=== PATIENT | male | born 1990 | race Two or more races ===

== ENCOUNTER 2025-03-22 13:10 | Outpatient (OUT) | payer OTHER, SELFPAY ==
--- NOTE | 2025-03-22 13:20 | XR_ITS ---
The [address] [address] Patient Name: PAULIE MARTINS MRN: [id number] date: 1990 Sex: M Assigned Patient Location: [facility] Current Patient Location: [facility] Accession/Order Number: [id number] Exam Date: 03/22/2025 13:35 Report Date: 03/22/2025 19:48 At the request of: JAMES ALMANZAR DO Procedure: XR cervical spine 2-3V XR cervical spine 2-3V 03/22/2025 1:47 PM SIGNS AND SYMPTOMS: ^Cervical spine arthritis, M46.92 PROTOCOLS: 3 views of the cervical spine COMPARISON: None FINDINGS: The bones are in anatomic alignment. There is preservation of the vertebral body heights. There is mild intervertebral disc height loss with anterior osteophyte formation at C5-C6. The atlantoaxial joint is preserved. There is no fracture or destructive lesion. XR/XR cervical spine 2-3V IMPRESSION: No fracture or subluxation. Mild degenerative changes are noted at C5-C6. Impression dictated by: Kashmir Baptiste M.D. 03/22/2025 7:48 PM Dictation Location: [place] [address] Electronically authenticated by: [id number] Y Date: 03/22/2025 19:48
--- NOTE | 2025-03-22 13:20 | XR_ITS ---
The [address] [address] Patient Name: PAULIE MARTINS MRN: [id number] date: 1990 Sex: M Assigned Patient Location: [facility] Current Patient Location: [facility] Accession/Order Number: [id number] Exam Date: 03/22/2025 13:35 Report Date: 03/22/2025 17:25 At the request of: JAMES ALMANZAR DO Procedure: XR thoracic spine 2V XR thoracic spine 2V 03/22/2025 1:47 PM SIGNS AND SYMPTOMS: ^Thoracic spine arthritis, M46.94 PROTOCOLS: 3 views of the thoracic spine COMPARISON: None FINDINGS: The bones are in anatomic alignment with preservation of vertebral body heights. There is mild intervertebral disc height loss with anterior osteophyte formation at T7-T8. There is a compression deformity of the superior endplate of T12 with anterior wedging and approximately 30% loss of vertebral body height anteriorly. No evidence of fracture or bony destructive lesion. XR/XR thoracic spine 2V IMPRESSION: There is a compression deformity of the superior endplate of T12 with anterior wedging and approximately 30% loss of vertebral body height anteriorly. There is mild intervertebral disc height loss with anterior osteophyte formation at T7-T8. Impression dictated by: Kashmir Baptiste M.D. 03/22/2025 5:25 PM Dictation Location: [place] [address] Electronically authenticated by: [id number] Y Date: 03/22/2025 17:25
--- NOTE | 2025-03-22 13:20 | XR_ITS ---
The [place] [address] Patient Name: PAULIE MARTINS MRN: [id number] date: 1990 Sex: M Assigned Patient Location: [facility] Current Patient Location: [facility] Accession/Order Number: [id number] Exam Date: 03/22/2025 13:35 Report Date: 03/22/2025 19:46 At the request of: JAMES ALMANZAR DO Procedure: XR lumbar spine 2-3V XR lumbar spine 2-3V 03/22/2025 1:47 PM SIGNS AND SYMPTOMS: ^Lumbar spine arthritis, M46.96 PROTOCOLS: Frontal and lateral radiographs of the lumbar spine COMPARISON: None FINDINGS: There is a compression deformity involving the T12 superior endplate with anterior wedging. There is mild anterior osteophyte formation with accompanying mild disc height loss at T12-L1 and L1-L2.. There is no fracture or destructive lesion. The disk spaces are well-preserved, otherwise. The sacrum and sacroiliac joints are normal. XR/XR lumbar spine 2-3V IMPRESSION: There is a compression deformity involving the T12 superior endplate with anterior wedging. There is mild anterior osteophyte formation with accompanying mild disc height loss at T12-L1 and L1-L2. Impression dictated by: Kashmir Baptiste M.D. 03/22/2025 7:46 PM Dictation Location: [place] [address] Electronically authenticated by: [id number] Y Date: 03/22/2025 19:46
== END 2025-03-22 13:11 | disposition home or self-care (01) ==
LOC: RAD 13:15
PROVIDERS: PCP Chiropractor; Visit Provider Chiropractor
DX: M46.94 Unspecified inflammatory spondylopathy, thoracic region (principal); M46.96 Unspecified inflammatory spondylopathy, lumbar region; M46.92 Unspecified inflammatory spondylopathy, cervical region; M50.30 Other cervical disc degeneration, unspecified cervical region; M48.54XA Collapsed vertebra, not elsewhere classified, thoracic region, initial encounter for fracture
CPT/HCPCS: 72040; 72070; 72100